=== PATIENT | female | born 1945 | race Caucasian/White ===

== ENCOUNTER 2020-09-27 08:41 | Outpatient (CLI) | payer MEDICARE, BC | END 2020-09-27 08:42 | disposition home or self-care (01) | LOC: CSHWCC 08:41 | PROVIDERS: ATTEND Nurse Practitioner Family | DX: E11.628 Type 2 diabetes mellitus with other skin complications (principal); L98.499 Non-pressure chronic ulcer of skin of other sites with unspecified severity; K94.09 Other complications of colostomy; E78.2 Mixed hyperlipidemia; I11.9 Hypertensive heart disease without heart failure; K51.00 Ulcerative (chronic) pancolitis without complications; M10.9 Gout, unspecified | CPT/HCPCS: 17250; 97139; G0463; 99212 ==

== ENCOUNTER 2020-10-04 08:45 | Outpatient (CLI) | payer MEDICARE, BC | END 2020-10-04 08:46 | disposition home or self-care (01) | LOC: CSHWCC 08:45 | PROVIDERS: ATTEND Nurse Practitioner Family | DX: L98.499 Non-pressure chronic ulcer of skin of other sites with unspecified severity (principal); K94.09 Other complications of colostomy; E11.628 Type 2 diabetes mellitus with other skin complications; E78.2 Mixed hyperlipidemia; I10 Essential (primary) hypertension; I11.9 Hypertensive heart disease without heart failure; K51.00 Ulcerative (chronic) pancolitis without complications; K94.00 Colostomy complication, unspecified; M10.9 Gout, unspecified | CPT/HCPCS: 17250; 99213; G0463 ==

== ENCOUNTER 2020-10-19 13:46 | Outpatient (CLI) | payer MEDICARE, BC | END 2020-10-19 13:47 | disposition home or self-care (01) | LOC: CSHWCC 13:46 | PROVIDERS: ATTEND Nurse Practitioner Family | DX: E11.628 Type 2 diabetes mellitus with other skin complications (principal); L98.499 Non-pressure chronic ulcer of skin of other sites with unspecified severity; K94.09 Other complications of colostomy; E78.2 Mixed hyperlipidemia; I11.9 Hypertensive heart disease without heart failure; M10.9 Gout, unspecified | CPT/HCPCS: 97139; G0463; 99213 ==

== ENCOUNTER 2020-11-09 11:55 | Outpatient (CLI) | payer MEDICARE, BC | END 2020-11-09 11:56 | disposition home or self-care (01) | LOC: CSHWCC 11:55 | PROVIDERS: ATTEND Nurse Practitioner Family | DX: E11.622 Type 2 diabetes mellitus with other skin ulcer (principal); K94.09 Other complications of colostomy; L98.499 Non-pressure chronic ulcer of skin of other sites with unspecified severity; E11.628 Type 2 diabetes mellitus with other skin complications; E78.2 Mixed hyperlipidemia; I10 Essential (primary) hypertension; I11.9 Hypertensive heart disease without heart failure; K51.00 Ulcerative (chronic) pancolitis without complications; K94.00 Colostomy complication, unspecified; M10.9 Gout, unspecified | CPT/HCPCS: 17250; 97139; G0463; 99212 ==

== ENCOUNTER 2020-12-15 11:15 | Outpatient (CLI) | payer MEDICARE, BC | END 2020-12-15 11:16 | disposition home or self-care (01) | LOC: CSHWCC 11:15 | PROVIDERS: ATTEND Nurse Practitioner Family | DX: K94.09 Other complications of colostomy (principal); E11.628 Type 2 diabetes mellitus with other skin complications; L98.499 Non-pressure chronic ulcer of skin of other sites with unspecified severity; K51.00 Ulcerative (chronic) pancolitis without complications; E78.2 Mixed hyperlipidemia; I11.9 Hypertensive heart disease without heart failure; M10.9 Gout, unspecified | CPT/HCPCS: 17250; 97139; G0463; 99213 ==

== ENCOUNTER 2021-03-08 09:57 | Outpatient (CLI) | payer MEDICARE, BC | END 2021-03-08 09:58 | disposition home or self-care (01) | LOC: CSHWCC 09:57 | PROVIDERS: ATTEND Nurse Practitioner Family | DX: E11.622 Type 2 diabetes mellitus with other skin ulcer (principal); L98.499 Non-pressure chronic ulcer of skin of other sites with unspecified severity; E11.628 Type 2 diabetes mellitus with other skin complications; I11.9 Hypertensive heart disease without heart failure; E78.2 Mixed hyperlipidemia; K51.00 Ulcerative (chronic) pancolitis without complications; K94.09 Other complications of colostomy; M10.9 Gout, unspecified | CPT/HCPCS: 99212; G0463 ==

== ENCOUNTER 2021-05-03 10:33 | Outpatient (CLI) | payer MEDICARE, BC | END 2021-05-03 10:34 | disposition home or self-care (01) | LOC: CSHWCC 10:33 | PROVIDERS: ATTEND Nurse Practitioner Family | DX: E11.622 Type 2 diabetes mellitus with other skin ulcer (principal); L98.499 Non-pressure chronic ulcer of skin of other sites with unspecified severity; K51.00 Ulcerative (chronic) pancolitis without complications; K94.09 Other complications of colostomy; E11.628 Type 2 diabetes mellitus with other skin complications; E78.2 Mixed hyperlipidemia; I11.9 Hypertensive heart disease without heart failure; M10.9 Gout, unspecified | CPT/HCPCS: 17250; 97139; G0463; 99213 ==

== ENCOUNTER 2021-05-24 09:24 | Outpatient (CLI) | payer MEDICARE, BC | END 2021-05-24 09:25 | disposition home or self-care (01) | LOC: CSHWCC 09:24 | PROVIDERS: ATTEND Nurse Practitioner Family | DX: L98.499 Non-pressure chronic ulcer of skin of other sites with unspecified severity (principal); K94.09 Other complications of colostomy; K51.00 Ulcerative (chronic) pancolitis without complications; E11.628 Type 2 diabetes mellitus with other skin complications; I11.9 Hypertensive heart disease without heart failure; E78.2 Mixed hyperlipidemia; M10.9 Gout, unspecified | CPT/HCPCS: 97139; G0463; 99212 ==

== ENCOUNTER 2021-06-28 14:41 | Outpatient (CLI) | payer MEDICARE, BC | END 2021-06-28 14:42 | disposition home or self-care (01) | LOC: CSHWCC 14:41 | PROVIDERS: ATTEND Nurse Practitioner Family | DX: E11.622 Type 2 diabetes mellitus with other skin ulcer (principal); L98.499 Non-pressure chronic ulcer of skin of other sites with unspecified severity; E11.628 Type 2 diabetes mellitus with other skin complications; I11.9 Hypertensive heart disease without heart failure; E78.2 Mixed hyperlipidemia; K51.00 Ulcerative (chronic) pancolitis without complications; K94.09 Other complications of colostomy; M10.9 Gout, unspecified ==

== ENCOUNTER 2021-08-02 15:01 | Outpatient (CLI) | payer MEDICARE, BC | END 2021-08-02 15:02 | disposition home or self-care (01) | LOC: CSHWCC 15:01 | PROVIDERS: ATTEND Nurse Practitioner Family | DX: L98.499 Non-pressure chronic ulcer of skin of other sites with unspecified severity (principal); I11.9 Hypertensive heart disease without heart failure; E11.628 Type 2 diabetes mellitus with other skin complications; E78.2 Mixed hyperlipidemia; K51.00 Ulcerative (chronic) pancolitis without complications; K94.09 Other complications of colostomy; M10.9 Gout, unspecified | CPT/HCPCS: 97139; G0463; 99213 ==

== ENCOUNTER 2021-08-30 12:49 | Outpatient (CLI) | payer MEDICARE, BC | END 2021-08-30 12:50 | disposition home or self-care (01) | LOC: CSHWCC 12:49 | PROVIDERS: ATTEND Nurse Practitioner Family | DX: L98.499 Non-pressure chronic ulcer of skin of other sites with unspecified severity (principal); K94.09 Other complications of colostomy | CPT/HCPCS: 97139; G0463; 99213 ==

== ENCOUNTER 2021-11-15 14:28 | Outpatient (CLI) | payer MEDICARE, BC | END 2021-11-15 14:29 | disposition home or self-care (01) | LOC: CSHWCC 14:28 | PROVIDERS: ATTEND Nurse Practitioner Family | DX: L98.499 Non-pressure chronic ulcer of skin of other sites with unspecified severity (principal); K94.09 Other complications of colostomy | CPT/HCPCS: 99212; G0463 ==

== ENCOUNTER 2022-02-27 11:18 | Outpatient (CLI) | payer MEDICARE, BC | END 2022-02-27 11:19 | disposition home or self-care (01) | LOC: CSHWCC 11:18 | PROVIDERS: ATTEND Nurse Practitioner Family | DX: L98.499 Non-pressure chronic ulcer of skin of other sites with unspecified severity (principal) ==

== ENCOUNTER 2022-04-11 11:03 | Outpatient (CLI) | payer MEDICARE, BC | END 2022-04-11 11:04 | disposition home or self-care (01) | LOC: CSHWCC 11:03 | PROVIDERS: ATTEND Preventive Medicine Undersea and Hyperbaric Medicine | DX: L98.499 Non-pressure chronic ulcer of skin of other sites with unspecified severity (principal) | CPT/HCPCS: 17250 ==

== ENCOUNTER 2022-05-03 10:07 | Outpatient (CLI) | payer MEDICARE, BC | END 2022-05-03 10:08 | disposition home or self-care (01) | LOC: CSHWCC 10:07 | PROVIDERS: ATTEND Preventive Medicine Undersea and Hyperbaric Medicine | DX: L98.499 Non-pressure chronic ulcer of skin of other sites with unspecified severity (principal); K94.09 Other complications of colostomy | CPT/HCPCS: 17250 ==

== ENCOUNTER 2022-06-20 13:13 | Outpatient (CLI) | payer MEDICARE, BC | END 2022-06-20 13:14 | disposition home or self-care (01) | LOC: CSHWCC 13:13 | PROVIDERS: ATTEND Nurse Practitioner Family | DX: L98.499 Non-pressure chronic ulcer of skin of other sites with unspecified severity (principal); K94.09 Other complications of colostomy ==

== ENCOUNTER 2022-09-05 11:24 | Outpatient (CLI) | payer MEDICARE, BC | END 2022-09-05 11:25 | disposition home or self-care (01) | LOC: CSHWCC 11:24 | PROVIDERS: ATTEND Nurse Practitioner Family | DX: L98.499 Non-pressure chronic ulcer of skin of other sites with unspecified severity (principal); K94.09 Other complications of colostomy | CPT/HCPCS: 97139; G0463; 99213 ==

== ENCOUNTER 2022-12-20 13:06 | Outpatient (CLI) | payer MEDICARE, BC | END 2022-12-20 13:07 | disposition home or self-care (01) | LOC: CSHWCC 13:06 | PROVIDERS: ATTEND Nurse Practitioner Family | DX: L98.499 Non-pressure chronic ulcer of skin of other sites with unspecified severity (principal); K94.09 Other complications of colostomy | CPT/HCPCS: 97139; G0463; 99213 ==

== ENCOUNTER 2023-03-26 15:22 | Outpatient (CLI) | payer MEDICARE, BC | END 2023-03-26 15:23 | disposition home or self-care (01) | LOC: CSHWCC 15:22 | PROVIDERS: ATTEND Nurse Practitioner Family | DX: L98.499 Non-pressure chronic ulcer of skin of other sites with unspecified severity (principal); K94.09 Other complications of colostomy | CPT/HCPCS: 97602 ==

== ENCOUNTER 2023-08-16 11:04 | Outpatient (CLI) | payer MEDICARE, BC | END 2023-08-16 11:05 | disposition home or self-care (01) | LOC: CSHWCC 11:04 | PROVIDERS: ATTEND Nurse Practitioner Family | DX: Z43.2 Encounter for attention to ileostomy (principal) | CPT/HCPCS: 99214; G0463 ==

== ENCOUNTER 2024-01-30 06:13 | Day surgery (SDC) | payer MEDICARE, BC ==
[2024-01-27 12:34] VITALS: BMI 29.4
[2024-01-30] MEDS ORDERED: Lidocaine 1% PF 5 ML VIAL ONE (06:52)
[2024-01-30] MEDS ORDERED: PROPOFOL 20 ML ONE (06:52)
[2024-01-30] MEDS ORDERED: fentaNYL 50 mcg/mL 1 mL Vial ONE (06:52)
[2024-01-30] MEDS ORDERED: Rocuronium Bromide 10 MG/ML (10ML VIAL) ONE (06:52)
[2024-01-30] MEDS ORDERED: ceFOXitin 1 GM VIAL ONE (07:15)
[2024-01-30] MEDS ORDERED: PHENYLEPHRINE-NS 100 MCG/ML 10 ML SYRINGE ONE (07:47)
[2024-01-30] MEDS ORDERED: ePHEDrine Sulfate 50 MG/10 ML VIAL ONE (07:53)
[2024-01-30] MEDS ORDERED: Vasopressin 20 UNITS/ML VIAL ONE (07:55)
[2024-01-30] MEDS ORDERED: SUGAMMADEX SODIUM 200 MG/2 ML VIAL ONE (08:14)
[2024-01-30] MEDS ORDERED: Bupivacaine PF 0.5% 30 ML VIAL ONE (08:41)
[2024-01-30] MEDS ORDERED: Ondansetron PF 4 MG/2 ML Vial ONE (08:41)
== END 2024-01-30 10:40 | disposition home or self-care (01) ==
LOC: CSHSDC 06:13
PROVIDERS: ATTEND Surgery
PROC: 0DW807Z Revision of Autologous Tissue Substitute in Small Intestine, Open Approach (ICD-10-PCS; principal; 2024-01-30)
DX: L98.499 Non-pressure chronic ulcer of skin of other sites with unspecified severity (principal); C44.509 Unspecified malignant neoplasm of skin of other part of trunk; K43.5 Parastomal hernia without obstruction or gangrene; K51.90 Ulcerative colitis, unspecified, without complications; I25.10 Atherosclerotic heart disease of native coronary artery without angina pectoris; M10.9 Gout, unspecified; M19.90 Unspecified osteoarthritis, unspecified site; I11.0 Hypertensive heart disease with heart failure; I50.9 Heart failure, unspecified; E78.5 Hyperlipidemia, unspecified; E11.9 Type 2 diabetes mellitus without complications; Z79.84 Long term (current) use of oral hypoglycemic drugs; Z79.899 Other long term (current) drug therapy; Z79.82 Long term (current) use of aspirin; Z79.01 Long term (current) use of anticoagulants; Z95.5 Presence of coronary angioplasty implant and graft; Z95.810 Presence of automatic (implantable) cardiac defibrillator
CPT/HCPCS: 44312; J0665; J0694; J2405; J2704; J3010; 88305; 88341; 88342